=== PATIENT | female | born 1940 ===

== ENCOUNTER 2016-06-27 15:34 | Inpatient (IN) | payer MEDICARE, OTHER ==
[~2016-06-27] VITALS: Ht 165.1 cm; Wt 65.4 kg
--- NOTE | ~2016-06-27 | CON ---
PATIENT'S NAME: SHERYL JOHNS [facility] AGE: 76 Y [address] ROOM: G3316 [place], [place] [address] LOCATION: G3N ADMIT DATE: 06/28/2016 Consultation DISCHARGE DATE: FAMILY PHYSICIAN: PATTIE MORTON MD ATTENDING PHYSICIAN: PATTIE MORTON DATE OF CONSULTATION: 06/28/2016 REFERRING PHYSICIAN: ROSENDA BUTLER REASON FOR CONSULTATION: Hyponatremia. HISTORY OF PRESENT ILLNESS: A 76-year-old lady with history of hypertension, with recent outpatient bronchitis and sinusitis, treated with Z-Roel, admitted yesterday with a productive cough, sinus congestion, and some shortness of breath. Initially thought to be community-acquired pneumonia, failing outpatient therapy and needing IV antibiotic; however, chest x-ray shows bilateral basilar congestion with mildly increased proBNP, and she has been now getting treated for decompensated heart failure leading to her shortness of breath. Incidentally on routine serum chemistry, her serum sodium was found to be 122 on admission which went up to 128 without any significant intervention overnight. Intake and output isbell, she was almost balanced, she did give me a history of an another episode of hyponatremia about couple of years ago when she was admitted with dehydration and was treated with IV fluids. She does take about 40-50 ounce of water a day at home. She is not on any significant medication that can cause significant hyponatremia except she is on hydrochlorothiazide for her blood pressure. During my evaluation, she does not appear to be significantly fluid overloaded. Although, there are some bibasilar crackles on lung auscultation. No gallops found on cardiac auscultation. She has no significant edema on bilateral lower extremities. Cardiology has ordered Lasix infusion for 8 hours and a 3% sodium chloride infusion at 25 mL/h for 4 hours. REVIEW OF SYSTEMS: GENERAL: No fever. No chills or rigor. HEENT: No complaint of sore throat but has nasal and sinus congestion. CVS: No chest pain. Complains of shortness of breath and worse on exertion. No significant leg swelling. RESPIRATORY: Shortness of breath as explained in the HPI. No significant wheezing, but has significant cough, and for last few days also has some sinus congestion. GENITOURINARY: No pain with urination. No increased frequency. No nocturia. GASTROINTESTINAL: No abdominal pain. No abdominal distention. No nausea or vomiting. NEUROLOGIC: No weakness. No seizures. SKIN: No rash. No itching. ALLERGIES: No seasonal allergy. No hayfever. ENDOCRINE: No heat intolerance. No cold intolerance. PSYCHIATRIC: No sadness. No crying spells. No history of panic attack. PAST MEDICAL HISTORY: 1. Allergic rhinitis. 2. Hypothyroidism. 3. Hyperlipidemia. 4. Hypertension. PAST SURGICAL HISTORY: 1. Hysterectomy. 2. Tonsillectomy.PATIENT'S NAME: SHERYL JOHNS [facility] AGE: 76 Y [address] ROOM: [place] [address] LOCATION: [facility] ADMIT DATE: 06/28/2016 Consultation DISCHARGE DATE: FAMILY PHYSICIAN: PATTIE MORTON MD ATTENDING PHYSICIAN: PATTIE MORTON FAMILY HISTORY: Mother had colon cancer. Father had diabetes and kidney cancer. No significant history of CKD or renal failure in the family. SOCIAL HISTORY: Former smoker for 23 years. Has two sons, is . Drinks a glass of wine less than once a month. ALLERGIES: SULFONAMIDE, MORPHINE, AND HYDROCODONE. HOME MEDICATIONS: 1. Albuterol 1 vial inhalation t.i.d. for shortness of breath. 2. Alendronate 10 mg p.o. daily. 3. Ascorbic acid 500 mg p.o. daily. 4. Zithromax 250 mg p.o. daily for four days starting on 06/27 and then 500 mg once 06/26. 5. Benzonatate 100 mg p.o. t.i.d. p.r.n. for cough. 6. Calcium carbonate vitamin D3 one tablet p.o. b.i.d. 7. Zyrtec 10 mg p.o. daily. 8. Premarin 0.625 mg tablet half a tablet p.o. daily for 1 to 25. 9. Glucosamine chondroitin sulfate one cap p.o. b.i.d. 10. Guaifenesin codeine phosphate 5-10 mL p.o. t.i.d. p.r.n. for cough. 11. Levothyroxine 88 mcg p.o. daily. 12. Losartan/hydrochlorothiazide 100 mg p.o. daily. 13. Metoclopramide 10 mg p.o. daily. 14. Metoprolol succinate 50 mg p.o. b.i.d. 15. Multivitamin Centrum 1 tablet p.o. daily. 16. Max-3 DHA fish oil one cap p.o. b.i.d. 17. Pantoprazole sodium 40 mg p.o. daily. 18. Rosuvastatin or Crestor 10 mg p.o. daily. 19. Triamcinolone 1 application topical b.i.d. over the hand. 20. Vitamin B complex and vitamin C 150 mg p.o. daily. PHYSICAL EXAMINATION: VITAL SIGNS: Blood pressure 127/62, heart rate 68 and regular, respiratory rate 16, temp afebrile, saturating at 98% on room air. GENERAL: Not in apparent distress. HEAD: Moist mucous membranes. Bilateral PERRLA, EOMI. NECK: No JVD, thyromegaly or lymphadenopathy. CVS: S1 and S2 normal, regular rate and rhythm. No murmur, rub, gallop. CHEST: Bilateral air entry equal. No wheeze or rales. ABDOMEN: Soft, nontender, nondistended. Bowel sounds present. EXTREMITIES: No cyanosis, clubbing, jaundice. No dependent edema. MUSCULOSKELETAL: No limitation of range of motion. SKIN: No pallor, cyanosis, icterus. SUPERVISOR [employer]CEL[employer] DEPARTMENT: Alert and oriented x3. No gross findings.PATIENT'S NAME: SHERYL JOHNS [facility] AGE: 76 Y [address] ROOM: [place] [address] LOCATION: [facility] ADMIT DATE: 06/28/2016 Consultation DISCHARGE DATE: FAMILY PHYSICIAN: PATTIE MORTON MD ATTENDING PHYSICIAN: PATTIE MORTON LABORATORY STUDIES: Sodium was 122 on admission, now is 128. BUN and creatinine are normal. Albumin 2.5. ProBNP 1258. Hemoglobin 9.6, white count normal. ASSESSMENT: 1. Hyponatremia query hypervolumic, although does not appears to be exceptionally fluid overloaded on clinical exam, but there is some bibasilar congestion on radiologic imaging with elevated proBNP. Cardiology is planning to diurese her gently with IV loop diuretic. We do not feel there is any need for 3% sodium chloride as sodium has improved significantly from admission. We will DC the 3% sodium chloride and will add oral sodium chloride tablet 70 mg p.o. b.i.d. for now. We will continue to check renal panel daily in a.m. we do not have any urine lytes and urine osmolality at this point, so will send a UA, urine sodium, potassium, creatinine and osmolality. We will also check for serum osmolality just to rule out any pseudohyponatremia; however, it is very less likely. In my opinion, this is probably hypovolemic hyponatremia secondary to heart failure. The patient although has no definitive diagnosis of chronic obstructive pulmonary disease, but she is a longstanding smoker with increased radiographic marking on the chest x-ray and the chest x-ray appears to be mildly hyperinflated as we see in a chronic smoker patients, which might have caused some degree of pulmonary hypertension and possibly some heart failure. D-dimer is slightly elevated but as she is on estrogen supplementation, will defer that part to Dr. Morton for further management. 2. Shortness of breath: ?Fluid overload or decompensated diastolic CHF as per cardiology. She has been placed on Lasix drip. D-dimer has been ordered. No significant history of myocardial infarction or any other cardiac history in the past. The patient will probably need an echo for further management. Pt has had h/o bronchitis & admitted with a diagnosis of CAP with failed OP therapy. Thank you for allowing me to participate in this patient's care. We will closely monitor the patient's progress along with you. [facility] DAVID BUTLER MD /modl /[id number] d: 06/28/161940 t: 06/29/16 1354, CONSULTATION REPORT
--- NOTE | ~2016-06-27 | DS ---
PATIENT'S NAME: SHERYL JOHNS [facility] AGE: 76 Y [address] ROOM: [place] [address] LOCATION: [facility] [place] ADMIT DATE: 06/28/2016 Discharge Summary DISCHARGE DATE: FAMILY PHYSICIAN: Pattie Carroll MD ATTENDING PHYSICIAN: Pattie Carroll FINAL DIAGNOSES: 1. Community-acquired pneumonitis. 2. Hyponatremia, resolved, probably fluid overload as etiology present on admission. 3. Diastolic congestive heart failure. 4. Hypertension, essential. HOSPITAL COURSE: The patient was admitted because she had hyponatremia; fatigue; community-acquired pneumonitis, type unspecified; and an elevated BNP. The patient was placed at bedrest. Continue on IV antibiotics and given low- dose normal saline, and Nephrology and Cardiology were consulted. Her sodium improved with fluid restriction and medicine adjusted. She had a stress test here because of her elevated BNP and elevated blood pressure, per Dr. Hogan it came back normal. Her fever here, she never really had a fever here, so she was switched to oral antibiotic Ceftin. She is dismissed on the date shown, on the med list shown to follow up with me in the office in 1 week and cost accounting manager in 2 weeks. If she has fever, chills, shortness of breath, she is to see me back earlier. PATTIE CARROLL MD CONVENTIONS ASSISTANT/estelital /[id number] d: 07/02/16 1232 t: 07/02/16 1840, DISCHARGE SUMMARY
--- NOTE | ~2016-06-27 | HP ---
PATIENT'S NAME: SHERYL NAVARRO [facility] AGE: 76 Y [address] ROOM: [place] [address] LOCATION: [facility] [place] ADMIT DATE: 06/28/2016 History & Physical DISCHARGE DATE: FAMILY PHYSICIAN: PATTIE CARROLL MD ATTENDING PHYSICIAN: PATTIE CARROLL DATE OF SERVICE: 07/01/2016 CLINICAL UPDATE: Sheryl Navarro is still in the hospital. Her shortness of breath is better. I do not feel she has pneumonia. I do not reflect she has interstitial pneumonitis versus fluid overload from congestive heart failure. After reassured today at the recommendation of Dr. Hogan, the patient had a Lexiscan. I see the patient is coming out of her Lexiscan and she states she feels better, results are pending. Her blood pressure, she is still up 189/90, pulse is 80, respirations 14. Her HEENT exam was benign. Neck unremarkable. Lungs are clear. Abdomen benign. ASSESSMENT: 1. Shortness of breath, community-acquired pneumonitis. 2. Diastolic congestive heart failure. 3. Hypertension, essential. PLAN: Await her stress test results and further treatment as indicated. PATTIE CARROLL MD REPAIR SUPERVISOR/modl /[id number] D: 641 T: 837 HISTORY & PHYSICAL
--- NOTE | ~2016-06-27 | ESTC ---
Cardiac Perfusion Imaging Demographics Patient Name ANDREAS Comer Gender Female Patient Number [id number] Race Visit Number [id number] Ethnicity Corporate ID Room Number G3209 Accession Number [id number] Height 65 inches Date of 1940 Weight 167 pounds Interpreting Edison Sosa Date of study 07/01/2016 Physician Supervising /KATHRYNP Edison Sosa NM Technologist Lakeisha Holder MD Ordering Physician Praveen De Los Santos Stress Shaji Suazo MD emergency medical technician RDCS, RVT Stress ECG Reading Edison Sosa Nurse Mac Leal Physician Procedure Procedure Type: Nuclear Stress Test:Cardiolite Stress Test Procedure Start time: 07/01/2016 10:10 Indications: Shortness of breath. Risk Factors The patient risk factors include:former tobacco use, treated hypercholesterolemia, treated hypertension, dyslipidemia and ( years not smokin). Conclusions Summary No TID. Normal perfusion. Normal EF and WM. Stress Protocols Resting ECG RSR. Pre-stress physical exam: Un changed. Predicted HR: 142 bpm ECG Findings No ECG changes suggestive of ischemia. Arrhythmias No rhythm abnormality. Symptoms SOB. Nausea. Stress Interpretation Lexiscan cardiolite with normal hemodynamic response. Symptoms of SOB and nausea. RSR with no ischemia or arrythmias. Imaging Results Summed scores - Summed stress score: 5 - Summed rest score: 6 - Summed difference score: -1 Stress ejection Ejection fraction:85 % EDV :52 ml ESV :8 ml Stroke volume :44 ml LV mass :87 gr LV size:Normal Normal LV function Imaging Protocols Rest Stress Isotope:Tc99m Sestamibi IV Isotope: Tc99m Sestamibi IV Isotope dose:11.2 mCi Isotope dose:31.8 mCi Date:07/01/2016 09:08 Date:07/01/2016 10:25 Technique: SPECT Technique: Gated Supine SPECT Supine IV remains in place after procedure. Scan Time:30 minutes post injection Scan Time:45-60 minutes post injection Procedure Medications - Regadenoson (Lexiscan) 0.4 mg IV over 10-15 sec. I.V. 0.4 mg. Medical History Admission Data Admission date: 06/28/2016 Admission Time: 15:00 Hospital Status: Inpatient. Signatures dtt: Sheila Hogan dtleandra: 07/01/16 1010 Physician Self Edit
--- NOTE | ~2016-06-27 | HP ---
PATIENT'S NAME: SHERYL NAVARRO [facility] AGE: 76 Y [address] ROOM: [place] [address] LOCATION: [facility] [place] ADMIT DATE: 06/28/2016 History & Physical DISCHARGE DATE: FAMILY PHYSICIAN: PATTIE CARROLL MD ATTENDING PHYSICIAN: PATTIE CARROLL DATE OF SERVICE: CLINICAL UPDATE: Sheryl Navarro is seen this morning. She was admitted the other day for a community-acquired pneumonitis, low sodium, and borderline potassium, and this morning complains of a new onset of pain in the left chest. She has been seen also by Cardiology, Dr. Hogan for an elevated BNP. Because when I saw her this morning, she has increasing pain in her left chest and increased rhonchi and rales there. I went ahead and ordered a CT scan of the chest with a PE protocol. Noted that her kidney function was borderline so protocol was used to protect her kidneys. Her CT scan comes back showing no evidence of pulmonary embolus and interstitial fluid, but no inez infiltrate. She does have bilateral pleural effusions. I have asked that her CAT scan results be faxed or text or called to Dr. Hogan in light of the findings. Today, her temperature was normal. Her blood pressure was 100/70. She is afebrile. Her O2 saturation on room air was normal. ASSESSMENT: 1. New left-sided chest pain. 2. A CT scan of the chest with pulmonary embolism protocol showing no evidence of pulmonary embolus. 3. Increased interstitial fluid with bilateral pleural fluid. PLAN: Plan per Cardiology. Continue antibiotics for now. Sodium noted to be 135 today. Hyponatremia improved. PATTIE CARROLL MD BARREL CHARRER HELPER/modl /[id number] D: 218 T: 835 HISTORY & PHYSICAL
--- NOTE | ~2016-06-27 | ECHO ---
Transthoracic Echocardiography Report (TTE) Demographics Patient Name SHERYL JOHNS Date of Study 06/28/2016 Patient Number [id number] Visit Number [id number] Date of 1940 Room Number G3316 Gender Female Number Age 76 year(s) Referring Praveen De Los Santos Microsoft Dynamics Ax Developer Jackson Dmuont RVT, Physician MD GONSALO Rodriguez Physician Interpreting Prieto Rivas Study Director Physician A Supervising Ordering Praveen De Los Santos MD, MD/MLP Physician Nurse Stress Flame Degreaser Conclusions Contractility Score Summary Normal Left Ventricular contractility was noted. Summary Technically difficult exam. The estimated left ventricular ejection fraction is 60-65%. The left ventricle is normal in size . Mild concentric left ventricular hypertrophy. Diastolic assessment reveals Grade III restrictive diastolic dysfunction. Mild tricuspid regurgitation by color Doppler. There is moderate pulmonary hypertension. The pulmonary pressure (RVSP) is 45 mmHg. Procedure Type of Study TTE procedure:2D Echocardiogram, M-Mode, Doppler , Color Doppler. Procedure Date Date: 06/28/2016 Start: 07:29 AM Study Location: Inpatient Portable Technical Quality: Fair Indications:Coronary artery disease. Appropriate Use Criteria: 9 Patient Status: Routine HR: 53 bpm BP: 130/56 mmHg M-Mode/2D Measurements LV Diastolic Dimension: 3.48 cm LV Systolic Dimension: 2.14 cm LV Septum Diastolic: 1.18 cm LV PW Systolic: 0.58 cm LV PW Diastolic: 1.11 cm AO Root Dimension: 2.8 cm Cardiac Output: 3.17 l/min AV Cusp Separation: 1.5 cm RV Diastolic Dimension: 2.87 cm LA volume: 31 ml LVOT: 1.7 cm RV Base: 3.28 cm LVOT VTI: 26.4 cm RV Mid: 2.97 cm LV Stroke volume: 59.89 ml TAPSE: 2.18 cm TDI-S': 11.1 cm/s Doppler Measurements AV Peak Velocity: 1.18 m/s MV Peak E-Wave: 1.14 m/s AV Peak Gradient: 5.57 mmHg MV Peak A-Wave: 0.59 m/s AV Mean Gradient: 3 mmHg MV E/A Ratio: 1.93 LVOT Peak Velocity: 0.97 m/s MV P1/2t: 51 msec MV Deceleration Time: 180 msec TR Gradient:41.73 mmHg PV Peak Velocity: 0.65 m/s Estimated RAP:3 mmHg PV Peak Gradient: 1.67 mmHg Estimated RVSP: 45 mmHg Estimated PASP: 44.73 mmHg E' Septal Velocity: 0.06 m/s A' Septal Velocity: 0.05 m/s E' Lateral Velocity: 0.06 m/s A' Lateral Velocity: 0.05 m/s Findings Left Ventricle The left ventricle is normal in size . Mild concentric left ventricular hypertrophy. Diastolic assessment reveals Grade III restrictive diastolic dysfunction. Right Ventricle Normal right ventricle structure and function. Left Atrium Normal left atrial size. Right Atrium Normal right atrial size. IVC measures 1.44 cm with inspiratory collapse. Mitral Valve Normal mitral valve structure and function. Mild mitral regurgitation by color Doppler. Aortic Valve The aortic valve is mildly sclerotic. No significant aortic stenosis or insufficiency. Tricuspid Valve Normal tricuspid valve structure and function. Mild tricuspid regurgitation by color Doppler. There is moderate pulmonary hypertension. The pulmonary pressure (RVSP) is 45 mmHg. Pulmonic Valve The pulmonic valve is not well visualized. Pericardial Effusion No evidence of pericardial effusion. Miscellaneous Visualized portions of the aortic root and ascending aorta appear normal in size. Pleural Effusion No evidence of pleural effusion. Contractility Score LV regional wall motion:(0-Non visualized 1-Normal 2-Hypokinesis 3-Akinesis 4-Dyskinesis 5-Aneurysm) Signature dtt: Stanford Moreau dtd: 06/28/16 0729 Physician Self Edit
--- NOTE | ~2016-06-27 | CON ---
PATIENT'S NAME: SHERYL NAVARRO [facility] AGE: 76 Y [address] ROOM: G3316 [place], [place] [address] LOCATION: G3N ADMIT DATE: 06/27/2016 Consultation DISCHARGE DATE: FAMILY PHYSICIAN: PATTIE MORTON MD ATTENDING PHYSICIAN: PATTIE MORTON DATE OF CONSULTATION: 06/28/2016 REFERRING PHYSICIAN: ROSENDA BUTLER A patient of Dr. Morton. Dear Dr. Morton: Thank you for asking me to see Mrs. Navarro, who is a 76-year-old female patient, who was hospitalized with possibly an upper respiratory tract infection with additional pneumonia for which she is on antibiotic therapy now. Her proBNP is elevated, and chest x-ray is suggestive of congestive heart failure, and this is the main reason for consultation. The patient had been in her usual state of health about 2 weeks ago. Since then, she had become hoarse for about 7 days followed by a cough, and yesterday, in fact, she had fever. She initially had an antibiotic therapy which was switched yesterday after admission. She currently feels better after she has come in. She has fluid running at 75 mL an hour. The patient denies having any prior cardiac history of any kind. There is no history of [place], angina, or nitroglycerin use. She denies rheumatic fever, heart murmur, congestive heart failure up until now, or atrial fibrillation. The patient has a history of hypertension and elevated cholesterol. She quit smoking more than 30 years ago. She denies diabetes or family history of premature coronary artery disease. She denies any prior history of chest pain. She has not had any trouble with shortness of breath either. She is limited by right sciatic nerve impingement for which Dr. Prater had seen her, and she apparently cannot have any surgery to relieve her symptoms, and she currently does not have any structured exercise program. She does get around her house reasonably well. She seemed to be in Functional Class II with no paroxysmal nocturnal dyspnea or orthopnea. She denies lightheadedness, dizziness, syncope, or presyncope. Yesterday, however, she did become lightheaded briefly. There are no palpitations, and she has had ankle swelling about 2 years ago, and she was given a bunch of fluids when she became dehydrated. She complains of feeling weak in the last 2 weeks, as well as she has been sleeping a lot more during daytime for the past year to two years. PATIENT'S NAME: SHERYL NAVARRO [facility] AGE: 76 Y [address] ROOM: [place] [address] LOCATION: [facility] ADMIT DATE: 06/27/2016 Consultation DISCHARGE DATE: FAMILY PHYSICIAN: PATTIE MORTON MD ATTENDING PHYSICIAN: PATTIE MORTON MEDICATIONS: 1. Albuterol sulfate. 2. Azithromycin. 3. Guaifenesin. 4. Tessalon. 5. Reglan 10 mg b.i.d. 6. Cetirizine 10 mg once a day. 7. Triamcinolone 1% cream. 8. Rosuvastatin 10 mg a day. 9. Protonix 40 mg a day. 10. Levothyroxine 88 mcg a day. 11. Conjugated estrogen 0.3125 mg once a day. 12. Metoprolol 50 mg p.o. b.i.d. 13. Alendronate sodium 10 mg a day. 14. Losartan/hydrochlorothiazide one tablet a day. 15. Calcium carbonate. 16. Multivitamin. 17. Ascorbic acid 500 mg a day. 18. Pearblossom-3 one capsule b.i.d. 19. Glucosamine and chondroitin one b.i.d. 20. Vitamin B Complex. ALLERGIES: SULFA, MORPHINE, AND HYDROCODONE. PAST MEDICAL HISTORY: 1. Hypothyroidism. 2. Sciatica. 3. Osteoporosis. 4. Tonsillectomy and adenoidectomy. 5. Hysterectomy and oophorectomy and has been on estrogen supplement for years and years and years. SOCIAL HISTORY: The patient lives alone. She denies abusing alcohol. Her appetite and weight have been stable; however, she has been gaining weight a little bit. Her sleep is fair. FAMILY HISTORY: No premature coronary artery disease. REVIEW OF SYSTEMS: A 12-point review of systems reveals: 1. Sinus problems. PATIENT'S NAME: SHERYL NAVARRO [facility] AGE: 76 Y [address] ROOM: [place] [address] LOCATION: [facility] ADMIT DATE: 06/27/2016 Consultation DISCHARGE DATE: FAMILY PHYSICIAN: PATTIE MORTON MD ATTENDING PHYSICIAN: PATTIE MORTON 2. Corrective lenses. 3. Cataracts removed. 4. Acid reflux. 5. She has trouble with her gallbladder. 6. DJD. PHYSICAL EXAMINATION: VITAL SIGNS: Her blood pressure is 127/62, heart rate is 68 and regular, respirations 16, and afebrile. HEENT: Normal. NECK: Supple with no JVD, thyromegaly, lymphadenopathy, or carotid bruit. CARDIAC: PMI is not well located. First and second heart sounds are regular. There are no added sounds or murmurs. CHEST: Clear to auscultation. ABDOMEN: Soft and nontender. Bowel sounds are normally present. EXTREMITIES: No edema. CENTRAL NERVOUS SYSTEM: Intact. LABORATORY AND DIAGNOSTIC DATA: A 12-lead EKG revealed mild LVH with normal ejection fraction. Her proBNP is elevated. Her sodium is 128 today, which is up from 122. BUN and creatinine are normal. Albumin is 2.5. One troponin that was done was negative. Her proBNP is elevated at 1258. Her albumin is 2.5. Her hemoglobin is 9.6. Her white count is normal as is her platelet count. ASSESSMENT: A 76-year-old female patient with what clinically appears to be diastolic congestive heart failure with hyponatremia. She does have mildly prolonged QT interval at 469 msec. She also has clinical evidence of congestive heart failure by chest x-rays. RECOMMENDATIONS: 1. We will diurese her mildly and also put her on 3% sodium to increase her sodium level a little bit without adding too much in terms of fluid. 2. We will get a D-dimer as well as she is on estrogen supplementation. Again, I appreciate this opportunity to participate in the care of Mrs. Navarro. MABEL VALLADARES MD PATIENT'S NAME: SHERYL NAVARRO [facility] AGE: 76 Y [address] ROOM: [place] [address] LOCATION: [facility] ADMIT DATE: 06/27/2016 Consultation DISCHARGE DATE: FAMILY PHYSICIAN: PATTIE MORTON MD ATTENDING PHYSICIAN: PATTIE MORTON/modl /[id number] d: 06/28/16 1326 t: 07/10/16 1233, CONSULTATION REPORT
--- NOTE | ~2016-06-27 | ER ---
PATIENT'S NAME: [facility]L [facility] AGE: 76 Y [address] ROOM: [place] [address] [place] [facility] [place] DATE: 06/28/2016 ER/Outpatient Report DISCHARGE DATE: 07/02/2016 FAMILY PHYSICIAN: Thomas Morton MD ATTENDING PHYSICIAN: Thomas Morton Time of Arrival: 1537 hours. Time of Evaluation: 1537 hours. CHIEF COMPLAINT: Weakness. HISTORY OF PRESENT ILLNESS: The patient is a 76-year-old female, who presents to the emergency department today with chief complaint of weakness. It started progressively worse over the past 4 hours. She has had a recent pneumonia with outpatient antibiotics. She has been on azithromycin twice. She continues to feel bad. She is having nausea and shakiness as well as some occasional vomiting. She is having a productive cough. No chest pain. No shortness of breath. No fevers or chills. No diarrhea. No headache. No back pain. The patient denies any specific pain 0/10 in severity. She just feels overall weak. PAST MEDICAL HISTORY: 1. Hypertension. 2. Arthritis. 3. Osteoporosis. PAST SURGICAL HISTORY: 1. Tonsillectomy. 2. Hysterectomy. SOCIAL HISTORY: The patient quit smoking 30 years ago. Denies any alcohol or illicit drug use. ALLERGIES: NONE. MEDICATIONS: Please see list. PRIMARY CARE DOCTOR: Thomas Morton MD. REVIEW OF SYSTEMS: PATIENT'S NAME: [facility]ERYL [facility] AGE: 76 Y [address] ROOM: [place] [address] LOCATION: [facility] [place] DATE: 06/28/2016 ER/Outpatient Report DISCHARGE DATE: 07/02/2016 FAMILY PHYSICIAN: Thomas Morton MD ATTENDING PHYSICIAN: Thomas Morton All systems are reviewed by myself are negative with the exception of those discussed in HPI and past medical history. PHYSICAL EXAMINATION: VITAL SIGNS: Weight 71.3 kg, blood pressure 170/97, pulse 56, respiratory rate 16, temperature 95.9, oxygen saturation 98% on room air. GENERAL: The patient is a 76-year-old female who appears stated age. HEENT: Normocephalic, atraumatic. Pupils are equal, round, and reactive to light. Oropharynx is clear. NECK: Supple. There is no nuchal rigidity. CARDIOVASCULAR: Bradycardic. No murmurs, rubs, or gallops. LUNGS: With rhonchi diffusely, however, worse at the bases. ABDOMEN: Soft, nontender, and nondistended. No rebound, rigidity, or guarding. MUSCULOSKELETAL: The patient moves all 4 extremities. SKIN: Warm and dry. There are no rashes or lesions noted. LABORATORY DATA AND X-RAYS: EKG shows sinus rhythm with a rate of 58, normal axis, QTc of 461, otherwise normal. No ST elevation, ST depression or T-wave inversions. CBC normal except for hemoglobin of 9.6, hematocrit 26.9, lactate is normal. Lipase is normal. Cardiac enzymes are normal. CMP; sodium 122, potassium 3.6, chloride 87, otherwise unremarkable. Calcium 7.8. LFTs are normal. ProBNP is 1258. Chest x-ray shows reticular opacities in the infrahilar region, interstitial edema versus infiltrate and small pleural effusion. IMPRESSION: 1. Community-acquired pneumonia, failed outpatient treatment. 2. Hyponatremia with symptomatic weakness. 3. Nausea and vomiting. 4. Generalized weakness. 5. Initial visit. EMERGENCY DEPARTMENT COURSE: The patient was brought back to the examination room. Seen and evaluated by myself. IV was established. Laboratory analysis and imaging are obtained as described above. The patient was given 1 L of normal saline bolus and was given 4 mg of Zofran IV as well as 4.5 g of Zosyn IV. Nia nurse practitioner has discussed the case with Dr. Morton. He does agree to accept the patient for further evaluation, treatment and management. I have discussed the results with the patient. Her questions are answered. She is without further questions at this time. PATIENT'S NAME: SHERYL [facility] AGE: 76 Y [address] ROOM: [place] [address] LOCATION: [facility] [place] DATE: 06/28/2016 ER/Outpatient Report DISCHARGE DATE: 07/02/2016 FAMILY PHYSICIAN: Thomas Morton MD ATTENDING PHYSICIAN: Thomas Morton DISPOSITION: The patient is admitted under the care of Dr. Morton in stable condition. DO ANNIE VIERA/walt /[id number] d: 07/04/16715 t: 07/06/16 0741, OUTPATIENT REPORT
--- NOTE | ~2016-06-27 | HP ---
PATIENT'S NAME: [facility]L [facility] AGE: 76 Y [address] ROOM: [address] [place], [place] [address] LOCATION: [facility] ADMIT DATE: 06/27/2016 History & Physical DISCHARGE DATE: FAMILY PHYSICIAN: PATTIE CARROLL MD ATTENDING PHYSICIAN: PATTIE CARROLL DATE OF SERVICE: CHIEF COMPLAINT: Weakness. HISTORY OF PRESENT ILLNESS: Sheryl is a pleasant 76-year-old female, who saw me about 10 days ago and had an outpatient bronchitis and sinusitis. At that time, I thought she had an atypical infection and she was treated with Z-Roel. She came back to see me 72 hours ago and saw me in the office complaining of a lot of sinus congestion and productive cough. Her x-ray at that time, showed increasing perihilar markings in both lung rios. She had a fever of 100, O2 saturation of 95% on room air, but I felt I thought she had a community-acquired pneumonitis, unresponsive to outpatient therapy and perhaps a bacterial sinusitis. So, she was treated with Rocephin, Saturday of this week, Saturday of this week, and again this morning, Saturday the day of admission, however, son called me this afternoon, the day of admission, said she felt more weak and tired. I had the patient come to the [facility] Emergency Room where she is evaluated and found to have a sodium of 122. At this time with her symptoms of dizziness and weakness associated hyponatremia, I have admitted to the hospital. We will continue her IV antibiotic. For now, give her some normal saline, and ask the plow and boring machine tender to see her in the morning for her low sodium to help us manage that, then lastly because her BNP is elevated in the hospital here, we will ask the coating machine operator helper, Dr. Hogan, in the morning and repeat an EKG at that time, along with rechecking her electrolytes in the morning. PAST MEDICAL HISTORY: MEDICATIONS: See nurse's notes. List has been reviewed. We will hold her Hyzaar 100/25 daily. ALLERGIES: SEE NURSE'S NOTES. I DO KNOW, SHE IS ALLERGIC TO SULFA. PAST SURGICAL HISTORY: PATIENT'S NAME: JOHNS, SHERYL [facility] AGE: 76 Y [address] ROOM: [place] [address] LOCATION: [facility] ADMIT DATE: 06/27/2016 History & Physical DISCHARGE DATE: FAMILY PHYSICIAN: PATTIE CARROLL MD ATTENDING PHYSICIAN: PATTIE CARROLL Previous operations: See old records. SOCIAL HISTORY: Does not smoke. FAMILY HISTORY: Noncontributory. REVIEW OF SYSTEMS: HEENT: She has had nasal drainage and headache. ENDOCRINE: She is not diabetic. There is no thyroid disease. LUNGS: As above. HEART: As above. No previous ID. No chest pain with exertion. GASTROINTESTINAL: Decreased appetite and some nausea and vomiting today. No melena. No hematemesis by history. GENITOURINARY: No dysuria or frequency. EXTREMITIES: No joint swelling. NEUROLOGIC: No history of stroke or previous seizure. PHYSICAL EXAMINATION: GENERAL APPEARANCE: Ill-appearing white female, lying in bed under the covers. HEENT: Shows eyes . TMs not visualized. Posterior pharynx is slightly erythematous. Mucous membranes are slightly dry. NECK: Unremarkable. No adenopathy. No thyroid enlargement. LUNGS: Decreased breath sounds anteriorly. I do not hear any acute wheeze or rhonchi anteriorly. CARDIAC: Heart sounds are distant. Regular rhythm. BREASTS: Not done. ABDOMEN: Soft without point tenderness. PELVIC AND RECTAL: Not done. PULSES: Full throughout. NEUROLOGIC: Grossly intact. Cranial nerves intact. No lateralizing signs. MENTAL STATUS: She is anxious about her health. ASSESSMENT: 1. community-acquired pneumonitis, unresponsive to Z-Roel, on day 3 of Rocephin. 2. Hyponatremia, symptomatic with weakness and lightheadedness. 3. Nausea and vomiting secondary to current illness. 4. Hypertension, essential. 5. Mild dehydration. PLAN: As above. PATIENT'S NAME: [facility]L [facility] AGE: 76 Y [address] ROOM: [place] [address] LOCATION: [facility] ADMIT DATE: 06/27/2016 History & Physical DISCHARGE DATE: FAMILY PHYSICIAN: PATTIE CARROLL MD ATTENDING PHYSICIAN: PATTIE CARROLL MD NINI MARINO/walt /[id number] D: [id number] T: [id number] HISTORY & PHYSICAL
[2016-06-27 16:22] LABS: BASOPHIL % 0.2 %; EOSINOPHIL # 0.1 K/uL (0.0-0.5); EOSINOPHIL % 2.4 %; HEMATOCRIT 26.9 % (33.0-46.0); HEMOGLOBIN 9.6 g/dL (10.0-15.0); IMMATURE GRANULOCYTE % 0.2 %; LYMPHOCYTE # 0.6 K/uL (0.8-4.0); MCHC 35.7 gm/dL (32.0-36.5); MCV 86.8 fl (83.0-98.0); MONOCYTE # 0.4 K/uL (0.0-1.0); MONOCYTE % 7.7 %; MPV 9.3 fl (9.4-12.4); NEUTROPHIL # (ANC) 3.8 K/uL (1.8-7.8); NEUTROPHIL % 77.5 %; NRBC % 0 /100WBC (0-0.00); PLATELET COUNT 163 K/uL (150-450); RDW-CV 11.3 % (11.9-14.6); WBC 4.9 K/uL (4.0-11.0)
[2016-06-27 16:48] LABS: ALBUMIN 2.8 gm/dL (3.5-5.0); ALK PHOS 80 IU/L (33-138); ALT 24 IU/L (12-78); AST 37 IU/L (10-40); BLOOD UREA NITROGEN 14 mg/dL (6-24); CALCIUM 7.8 mg/dL (8.5-10.5); CO2 25 mMol/L (22-32); CPK 191 IU/L (21-215); ESTIMATED GFR (MDRD EQUATION) 54; POTASSIUM 3.6 mMol/L (3.7-5.1); TOTAL BILIRUBIN 0.2 mg/dL (0.0-1.5); TOTAL PROTEIN 6.3 g/dL (6.0-8.4)
[2016-06-27 16:49] LABS: ANION GAP 13.6 (10.0-19.0); CHLORIDE 87 mMol/L (96-110); SODIUM 122 mMol/L (135-145)
[2016-06-27 17:07] LABS: BILIRUBIN URINE NEGATIVE (NEGATIVE); BLOOD URINE 10 /UL (NEGATIVE); COLOR URINE YELLOW (YELLOW); GLUCOSE URINE NEGATIVE (NEGATIVE); KETONE URINE NEGATIVE (NEGATIVE); LEUKOCYTES URINE NEGATIVE /UL (NEGATIVE); NITRITE URINE NEGATIVE (NEGATIVE); PH URINE 6.5 (4.0-8.0); PROTEIN URINE NEGATIVE (NEGATIVE); TURBIDITY URINE CLEAR (CLEAR); UROBILINOGEN URINE NORMAL (NORMAL)
[2016-06-27 17:13] LABS: BACTERIA URINE FEW (NEGATIVE); EPITHELIAL URINE 0-2 #/HPF (NEGATIVE); WBC URINE 0-2 #/HPF (NEGATIVE)
[2016-06-27] MEDS ORDERED: ALBUTEROL2.5 MG/31 INH (19:20)
[2016-06-27] MEDS ORDERED: ZITHROMAX250 MG PO ×2 (19:21→19:22)
[2016-06-27] MEDS ORDERED: GUAIFENESIN AC473 ML PO (19:22)
[2016-06-27] MEDS ORDERED: TESSALON PERLE100 MG PO (19:23)
[2016-06-27] MEDS ORDERED: REGLAN10 MG PO (19:23)
[2016-06-27] MEDS ORDERED: ZYRTEC10 MG PO (19:24)
[2016-06-27] MEDS ORDERED: TRIACET 0.1% 8080 GM TOP (19:25)
[2016-06-27] MEDS ORDERED: CRESTOR10 MG PO (19:25)
[2016-06-27] MEDS ORDERED: LEVOTHROID (SY88 MCG PO (19:26)
[2016-06-27] MEDS ORDERED: PROTONIX40 MG PO (19:26)
[2016-06-27] MEDS ORDERED: PREMARIN0.625 MG PO (19:33)
[2016-06-27] MEDS ORDERED: ALENDRONATE SOD10 MG PO (19:34)
[2016-06-27] MEDS ORDERED: TOPROL XL 5050 MG PO (19:34)
[2016-06-27] MEDS ORDERED: LOSARTAN-HCTZ1 EACH PO (19:35)
[2016-06-27] MEDS ORDERED: CENTRUM SILVER1 TAB PO (19:36)
[2016-06-27] MEDS ORDERED: CALTRATE 600 +1 EAC1 PO (19:36)
[2016-06-27] MEDS ORDERED: ASCORBIC ACID500 MG PO (19:37)
[2016-06-27] MEDS ORDERED: FISH OIL 1,0001 EAC5 PO (19:37)
[2016-06-27] MEDS ORDERED: GLUCOSAMINE-CH1 EA18 PO (19:38)
[2016-06-27] MEDS ORDERED: SUPER B COMPLE150 MG PO (19:39)
--- NOTE | 2016-06-27 20:10 | NUR ---
Patient is 76 yo female admitted from ER this evening with pneumonia and hyponatremia. patient states she has been being treated for a week for the pneumonia. has gotten weaker and is dizzy. Education is given as directed. patient and son deny questions. call light is within reach. denies needs. Report is given to MARIAMA Rojas.
--- NOTE | 2016-06-28 04:45 | NUR ---
Shift Summary: Patient admitted at beginning of the shift. She can ambulate with one assist. Has generalized weakness. When admitted she had continous dizziness, head pressure, and nausea. All of that has resolved at this time. She is taking cough syrup with codeine and tesslon pearls for congested sounding, non-productive cough. from cardiology and to consult on patient today. She is on accurate I&O and daily wt.
[2016-06-28 05:40] LABS: ALBUMIN 2.5 gm/dL (3.5-5.0); ALK PHOS 72 IU/L (33-138); ALT 22 IU/L (12-78); ANION GAP 11.8 (10.0-19.0); AST 30 IU/L (10-40); BLOOD UREA NITROGEN 11 mg/dL (6-24); CHLORIDE 94 mMol/L (96-110); CO2 26 mMol/L (22-32); CREATININE 0.9 mg/dL (0.5-1.1); ESTIMATED GFR (MDRD EQUATION) > 60; POTASSIUM 3.8 mMol/L (3.7-5.1); SODIUM 128 mMol/L (135-145); TOTAL PROTEIN 5.6 g/dL (6.0-8.4)
[2016-06-28 05:41] LABS: CALCIUM 7.4 mg/dL (8.5-10.5); TOTAL BILIRUBIN 0.3 mg/dL (0.0-1.5)
--- NOTE | 2016-06-28 06:46 | NUR ---
[id number] supervised [facility] Staff Attorney.
--- NOTE | 2016-06-28 14:50 | NUR ---
Introduced self/role to patient. RE[facility] Educator also present. She lives in [place] with her son whom is on disability. She plans to go home, hopefully tomorrow. She couldn't think of anything that would be needed. Has a walker, no other DME needed. No HHC needed. Wrote my name on her marker board, will continue to follow. Son would transport home.
[2016-06-28 15:11] LABS: BILIRUBIN URINE NEGATIVE (NEGATIVE); BLOOD URINE NEGATIVE /UL (NEGATIVE); GLUCOSE URINE NEGATIVE (NEGATIVE); KETONE URINE NEGATIVE (NEGATIVE); LEUKOCYTES URINE NEGATIVE /UL (NEGATIVE); NITRITE URINE NEGATIVE (NEGATIVE); PROTEIN URINE NEGATIVE (NEGATIVE); SPEC GRAVITY URINE 1.005 (1.003-1.035); UROBILINOGEN URINE NORMAL (NORMAL)
[2016-06-28 15:22] LABS: COLOR URINE YELLOW (YELLOW); TURBIDITY URINE CLEAR (CLEAR)
--- NOTE | 2016-06-28 17:26 | NUR ---
Significant Event: Ambulates with SBA and walker. Accurate I&). Daily weight. Denies pain. Lasix IV infusing at 5mg/hr for 8 hours. Remains on room air. Telemetry with no calls. Follow up:
--- NOTE | 2016-06-29 04:23 | NUR ---
Shift Summary: Patient on tele, no calls this shift. Can ambulate with standby assist and walker. Had a coughing spells that causes left ribcage pain afterward. Gave cough syrup at 2034, tylenol at 2114, and zofran at 2131 for nausea. Patient slept well rest of the shift.
[2016-06-29 06:29] LABS: CALCIUM 7.8 mg/dL (8.5-10.5); CREATININE 1.2 mg/dL (0.5-1.1); MAGNESIUM 2.2 mg/dL (1.3-2.6); POTASSIUM 4.2 mMol/L (3.7-5.1)
[2016-06-29 06:31] LABS: ANION GAP 12.2 (10.0-19.0)
--- NOTE | 2016-06-29 06:47 | NUR ---
[id number] [facility] Social Media Intern.
--- NOTE | 2016-06-29 17:22 | NUR ---
Significant Event: Pt is a/o. Cooperative with cares. Has occas. productive cough. Had a cough episode last night, then developed L) chest discomfort. Had CT for PE protocal today. It was negative. She has received 1 of 4 doses of mucomyst po this am prior to procedure. Wants to take it in apple juice. Infusion of bicarb complete. Amb to BR with SBA/gaitbelt and either pushes IV pole, or uses walker. Tylenol 650 po @ 1715 for headache. Able to get RT treatments for cough. Will want one prior to bed tonight. She is on tele, no calls. Has columba pneumatic stockings on. Daily weight. IV R) FA, Follow up:
--- NOTE | 2016-06-30 04:34 | NUR ---
Significant Event: ALERT AND ORIENTED X4 AMBULATES WITH STAND BY ASSIST AND WALKER. TELY NO EVENTS THIS SHIFT. VS WNL, DID HAVE ONE HYPERTENSIVE B/P RELATED TO COUGHING FIT. HAS NEW FLANK PAIN FROM COUGHING DRJaron PRESCRIBED TRAMADOL PRN. COUGH SYRUP GIVEN AT 0027 WITH RELIEF, B/P REASSESSED, WNL AT THAT TIME.HAD BREATHING TX AT 2032. LUNGS DIMINISHED. REGULAR DIET. VERY PLEASANT AND COOPERATIVE WITH CARES.
[2016-06-30 06:17] LABS: ANION GAP 11.1 (10.0-19.0); CALCIUM 8.3 mg/dL (8.5-10.5); CREATININE 1.1 mg/dL (0.5-1.1); POTASSIUM 4.1 mMol/L (3.7-5.1)
--- NOTE | 2016-06-30 15:52 | NUR ---
Patient is alert and oriented, hypertensive. SBA with walker. Appetite was poor today, but regular diet. IV is saline locked. Orthostatic BP taken and were negative. Did have lasix IV drip overnight, 2200 out today. IV antibiotics were DC'd and POs will be strated tonight. She did get a little nauseous when she was having a BM this morning but no emesis. Will continue to monitor her BP.
--- NOTE | 2016-07-01 05:18 | NUR ---
Significant Event: ALERT AND ORIENTATED X 4 AMBULATES WITH STANDBY ASSIST GB WALKER. NPO AT 0000 FOR TREADMILL TEST IN AM. GAVE TORADOL AND COUGH SYRUP AT HS. REGULAR DIET. ORTHOSTATIC B/P IN AM ORDERED. IV SL. LASIX IV ADMINISTERED THIS SHIFT. PLEASANT AND COORPERATIVE WITH CARES. Follow up:
[2016-07-01 05:28] LABS: CALCIUM 8.2 mg/dL (8.5-10.5); CREATININE 1.1 mg/dL (0.5-1.1)
--- NOTE | 2016-07-01 16:07 | NUR ---
Patient is alert and oriented, hypertensive. Went for a cardiac stress test today. Received Bumex IV overnight with 1850 out this shift. SBA with walker. Will continue to monitor BPs and output.
--- NOTE | 2016-07-02 04:38 | NUR ---
Significant Event: ALERT AND ORIENTATED X4. AMBULATES WITH GB WALKER AND STANDBY ASSIST. VITAL WNL. HISTORY OF HYPERTENSION. RECIEVED A BUMAX IV OVERNIGHT WITH 1945 OUT THIS SHIFT. GAVE KELLIE BRITT AT HS. REGULAR DIET Follow up: CONTINUE TO MONITOR BLOOD PRESSURE,.
--- NOTE | 2016-07-02 04:51 | NUR ---
Significant Event: ALERT AND ORIENTATED X4. AMBULATES WITH WALKER GB AND ONE ASSIST. RECIEVED BUMAX THIS SHIFT WITH 1945 OUT. GAVE TESSLON PEARLS AT HS FOR COUGH. VS WNL THIS SHIFT HAS A HX OF HYPERTENSION THIS HOSPITAL STAY. REGULAR DIET. COORPERATIVE WITH CARES. PLANS ARE TO RETURN HOME THIS AM. LIVES WITH SON . Follow up:
[2016-07-02 05:15] LABS: ANION GAP 14.1 (10.0-19.0); CALCIUM 8.8 mg/dL (8.5-10.5); CREATININE 1.2 mg/dL (0.5-1.1); POTASSIUM 4.1 mMol/L (3.7-5.1)
[2016-07-02] MEDS ORDERED: NORVASC5 MG PO (11:53)
[2016-07-02] MEDS ORDERED: CEFUROXIME250 MG PO (11:54)
[2016-07-02] MEDS ORDERED: TYLENOL325 MG PO ×2 (11:58→11:59)
[2016-07-02] MEDS ORDERED: ALDACTONE25 MG PO (11:58)
[2016-07-02] MEDS ORDERED: DEMADEX20 M1 PO (12:01)
--- NOTE | 2016-07-02 12:43 | NUR ---
D: Orders received for the patient to be discharge to home today. I: Dismissal instructions were prepared and reviewed with the patient and family virtsienay. The following information was discussed with the patient including [employer] teaching sheets provided: What is high blood pressure, Discharge instructions-taking your blood pressure, Controlling high pressure, taking a diuretic, when you have pneumonia, Norvasc, Cefuroxime, Spironolactone, Torsemide, Preventing DVT, Low-salt choices, and discharge instructions-eating a low salt diet. Reviewed follow up appointments and new prescriptions. R: The patient and family both verbalized understanding of the dismissal education at the time of teaching with no further questions. P: The above information was shared with the primary nurse and charge nurse that the patient discharge education was completed. The patient is ready for dismissal to the front door via wheel chair by nursing staff.
== END 2016-07-02 12:50 | disposition disaster alternative care site (69) | DRG 291 ==
LOC: GMED 15:34 → G3N 17:57 → GMSU 06-29 18:50
PROVIDERS: Emergency Medicine; Internal Medicine Interventional Cardiology; Internal Medicine Nephrology; ADMIT Family Medicine
DX: I11.0 Hypertensive heart disease with heart failure (principal); J18.9 Pneumonia, unspecified organism; E86.0 Dehydration; E87.1 Hypo-osmolality and hyponatremia; I50.33 Acute on chronic diastolic (congestive) heart failure; M19.90 Unspecified osteoarthritis, unspecified site; Z87.891 Personal history of nicotine dependence; E03.9 Hypothyroidism, unspecified; M81.0 Age-related osteoporosis without current pathological fracture; K21.9 Gastro-esophageal reflux disease without esophagitis; Z79.890 Hormone replacement therapy; E78.5 Hyperlipidemia, unspecified
CPT/HCPCS: A9500; G0378; J0280; J0696; J1650; J1940; J2405; J2543; J2785; J7030; J7040; J7050; J7060; Q9967

== ENCOUNTER → 2016-09-20 | Day surgery (SDC) | payer MEDICARE, OTHER ==
[~2016-09-20] VITALS: Ht 166.4 cm; Wt 62.2 kg
[~2016-09-20] MED LIST: ALBUTEROL2.5 MG/31 INH; ALDACTONE25 MG PO; ALENDRONATE SOD10 MG PO; ASCORBIC ACID500 MG PO; CALTRATE 600 +1 EAC1 PO; CEFUROXIME250 MG PO; CENTRUM SILVER1 TAB PO; CRESTOR10 MG PO; DEMADEX20 M1 PO; FISH OIL 1,0001 EAC5 PO; GLUCOSAMINE-CH1 EA18 PO; GUAIFENESIN AC473 ML PO; LEVOTHROID (SY88 MCG PO; LOSARTAN-HCTZ1 EACH PO; NORVASC5 MG PO; PREMARIN0.625 MG PO; PROTONIX40 MG PO; REGLAN10 MG PO; SUPER B COMPLE150 MG PO; TESSALON PERLE100 MG PO; TOPROL XL 5050 MG PO; TRIACET 0.1% 8080 GM TOP; TYLENOL325 MG PO; ZITHROMAX250 MG PO; ZYRTEC10 MG PO
--- NOTE | ~2016-09-20 | OR ---
PATIENT'S NAME: SHERYL JOHNS [facility] AGE: 76 Y [address] ROOM: [place] [address] [place] [facility] [place]: 09/20/2016 OR/Procedure Report DISCHARGE DATE: FAMILY PHYSICIAN: PATTIE CARROLL MD ATTENDING PHYSICIAN: VERN ADAMS SURGEON: Vern Adams MD ACCESS REP: None. DATE OF PROCEDURE: 09/20/2016 PREOPERATIVE DIAGNOSIS: Basal cell carcinoma of the right cheondoism. POSTOPERATIVE DIAGNOSIS: Basal cell carcinoma of the right cheondoism. PROCEDURE: 1. Wide local excision of the right cheondoism basal cell carcinoma, 35 x 11 mm. 2. Complex closure, 35 mm. ANESTHESIA: Local with MAC. COMPLICATIONS: None. SPECIMEN: Right cheondoism lesion. ESTIMATED BLOOD LOSS: 5 mL. FINDINGS: Negative frozen section margins. INDICATION: The patient is a 76-year-old female with a biopsy-proven basal cell carcinoma of the right cheondoism. PROCEDURE IN DETAIL: The patient was brought to the operative suite, placed on table in supine position. All pressure points were padded. Time-out was performed correctly identifying the patient and procedure. MAC anesthesia was initiated. The area was marked out on the right cheondoism in an elliptical fashion vertically and then injected with 1% lidocaine with epinephrine and 0.5% Marcaine with epinephrine in 1:1 ratio. After prepping and draping the patient, the area was incised elliptically with a 15 blade down to the subcutaneous fat. This was elevated off, marked with sutures, and sent for frozen section margins, which returned negative. This was undermined widely and closed with 5-0 Monocryl sutures deep and a 5-0 fast gut running suture for the skin. The area was cleansed and ointment applied. This concluded the procedure. PATIENT'S NAME: SHERYL JOHNS [facility] AGE: 76 Y [address] ROOM: [place] [address] [place] [facility] [place]: 09/20/2016 OR/Procedure Report DISCHARGE DATE: FAMILY PHYSICIAN: PATTIE CARROLL MD ATTENDING PHYSICIAN: VERN ADAMS MD RYANNE SAWYER/modl /[id number] d: 09/20/16 1734 t: 10/04/16 1054, OPERATIVE SUMMARY
--- NOTE | 2016-09-20 07:57 | NUR ---
ONE IV ATTEMPT MADE PER LULY Scruggs RN
== END | disposition disaster alternative care site (69) ==
LOC: GPOC 09-17 10:00 → GSDC 07:01 → GPOC 10:00
PROC: 0HB1XZZ Excision of Face Skin, External Approach (ICD-10-PCS; principal; 2016-09-20)
DX: C44.319 Basal cell carcinoma of skin of other parts of face (principal); I11.0 Hypertensive heart disease with heart failure; I50.30 Unspecified diastolic (congestive) heart failure; Z87.891 Personal history of nicotine dependence; Z88.0 Allergy status to penicillin; Z88.2 Allergy status to sulfonamides; Z88.5 Allergy status to narcotic agent; Z79.899 Other long term (current) drug therapy
CPT/HCPCS: J2001; J2250; J7030

== ENCOUNTER → 2016-10-12 | Outpatient (CLI) | payer MEDICARE, OTHER ==
[2016-10-12 09:28] LABS: ALBUMIN 3.5 gm/dL (3.5-5.0); ANION GAP 10.9 (10.0-19.0); CALCIUM 9.2 mg/dL (8.5-10.5); CREATININE 1.2 mg/dL (0.5-1.1); POTASSIUM 3.9 mMol/L (3.7-5.1); TOTAL PROTEIN 7.1 g/dL (6.0-8.4)
[2016-10-12 09:31] LABS: TOTAL BILIRUBIN 0.4 mg/dL (0.0-1.5)
== END | disposition disaster alternative care site (69) ==
LOC: LGSOS 08:52
PROVIDERS: Internal Medicine Interventional Cardiology
DX: E78.5 Hyperlipidemia, unspecified (principal); I50.30 Unspecified diastolic (congestive) heart failure